=== PATIENT | male | born 1970 | race Caucasian/White ===

== ENCOUNTER → 2017-05-29 | Outpatient (REF) ==
[2017-05-29 11:38] LABS: PSA-TOTAL 0.38 ng/mL (0-4); THYROID STIMULATING HORMONE 2.08 uIU/mL (0.465-4.680)
== END ==
LOC: ZCOL.LAB 10:30
PROVIDERS: Internal Medicine
DX: Z01.89 Encounter for other specified special examinations (principal)
CPT/HCPCS: G0103